=== PATIENT | female | born 1990 | race Hispanic/Latino ===

== ENCOUNTER 2017-07-31 17:40 | Emergency (ER) | payer OTHER, BC ==
[~2017-07-31] VITALS: Ht 167.6 cm; Wt 101.6 kg
[~2017-07-31 17:40] MED LIST: ADVIL200 MG PO; MOTRIN800 MG PO; NAPROSYN500 MG PO; NUVARING VAGIN1 EACH VG; VICODIN 5-3001 EACH PO
[2017-07-31] MEDS ORDERED: FLEXERIL10 MG PO (19:35)
[2017-07-31] MEDS ORDERED: MOTRIN600 MG PO (19:35)
[2017-07-31 19:56] VITALS: BP 156/87
== END 2017-07-31 19:58 | disposition home or self-care (01) ==
LOC: EME 17:40
DX: S93.401A Sprain of unspecified ligament of right ankle, initial encounter (principal); S80.02XA Contusion of left knee, initial encounter; S60.222A Contusion of left hand, initial encounter; V44.5XXA Car driver injured in collision with heavy transport vehicle or bus in traffic accident, initial encounter; Y92.410 Unspecified street and highway as the place of occurrence of the external cause; Z88.6 Allergy status to analgesic agent
CPT/HCPCS: 73130; 73564; 73610; 99281; 99284